=== PATIENT | female | born 1960 | race Hispanic/Latino ===

== ENCOUNTER 2018-03-26 15:21 | Emergency (ER) | payer BC ==
[2018-03-26 16:05] LABS: Absolute Lymphocytes (CBC) 0.6 K/uL (0.7-4.9); Absolute Monocytes 0.3 K/uL (0.1-1.3); Absolute Neutrophil 8.4 K/uL (1.8-8.0); Basophils % 0.4 % (0-1.3); Eosinophils % 0.5 % (0-4.4); Hematocrit 41.6 % (36.0-45.0); Lymphocytes % 6.3 % (15.3-44.8); MPV 8.4 fL (7.6-11.3); Monocytes % 3.6 % (3.3-12.3)
[2018-03-26] MEDS ORDERED: NA CHLORIDE 0.9% 1,000 ML ONE (16:11)
[2018-03-26] MEDS ORDERED: ONDANSETRON 4 MG/2 ML VIAL ONE (16:11)
[2018-03-26 16:20] LABS: Albumin 3.7 g/dL (3.4-5.0); Bilirubin Direct 0.3 mg/dL (0-0.2); Bilirubin Total 1.1 mg/dL (0.2-1.0); Potassium 3.7 mmol/L (3.5-5.1); Protein, Total 7.3 g/dL (6.4-8.2)
[2018-03-26 16:49] LABS: Urine Blood 1+ (NEG); Urine Glucose NEGATIVE (NEG); Urine Protein NEGATIVE (NEG); Urine Specific Gravity 1.015 (1.005-1.030); Urine pH 5.5 (5.0-7.0)
--- NOTE | 2018-03-26 17:03 | ER ---
Nurse's Notes [facility] Name: Lauren Hernandez Age: 57 yrs Sex: Female : 1960 Arrival Date: 03/26/2018 Time: 15:24 Bed 13 Private MD: Diagnosis: Nausea with vomiting, unspecified;Diarrhea, unspecified Presentation: 03/26 15:29 Presenting complaint: Patient states: N/V/D with nasal congestion since yesterday. aj Transition of care: patient was not received from another setting of care. Onset of symptoms was March 25, 2018. Risk Assessment: Do you want to hurt yourself or someone else? Patient reports no desire to harm self or others. Initial Sepsis Screen: Does the patient meet any 2 criteria? No. Patient's initial sepsis screen is negative. Does the patient have a suspected source of infection? No. Patient's initial sepsis screen is negative. Care prior to arrival: None. 15:29 Method Of Arrival: Ambulatory 15:29 Acuity: CARLOS 4 aj Triage Assessment: 15:31 General: Appears in no apparent distress. comfortable, obese, Behavior is calm, aj cooperative, appropriate for age. Pain: Denies pain. EENT: Reports nasal congestion nasal discharge. Neuro: Level of Consciousness is awake, alert, obeys commands, Oriented to person, place, time, situation, Appropriate for age. Respiratory: Airway is patent Respiratory effort is even, unlabored, Respiratory pattern is regular, symmetrical. GI: Abdomen is obese. Musculoskeletal: Range of motion: intact in all extremities. Historical: - Allergies: 15:31 No Known Allergies; aj - Home Meds: 15:31 Lisinopril Oral [Active]; Omeprazole Oral [Active]; Lovastatin Oral [Active]; aj - PMHx: 15:31 Hypertension; Hyperlipidemia; aj - Immunization history:: Adult Immunizations up to date. - Social history:: Smoking status: Patient/guardian denies using tobacco. - Ebola Screening: : Patient negative for fever greater than or equal to 101.5 degrees Fahrenheit, and additional compatible Ebola Virus Disease symptoms Patient denies exposure to infectious person Patient denies travel to an Ebola-affected area in the 21 days before illness onset No symptoms or risks identified at this time. Screenin:30 Abuse screen: Denies threats or abuse. Nutritional screening: No deficits noted. rb1 Tuberculosis screening: No symptoms or risk factors identified. Fall Risk None identified. Assessment: 15:30 General: Appears in no apparent distress. comfortable, obese, Behavior is calm, rb1 cooperative. Pain: Complains of pain in headache Pain currently is 7 out of 10 on a pain scale. Pain began 1 day ago. Neuro: Level of Consciousness is awake, alert, obeys commands, Oriented to person, place, time, situation. Cardiovascular: Capillary refill < 3 seconds is brisk in bilateral fingers. Respiratory: Airway is patent Respiratory effort is even, unlabored, Respiratory pattern is regular, symmetrical. GI: Reports diarrhea, nausea, vomiting, since yesterday. : No signs and/or symptoms were reported regarding the genitourinary system. Derm: Skin is dry, Skin is normal, Skin temperature is warm. 16:28 Reassessment: Patient appears in no apparent distress at this time. No changes from rb1 previously documented assessment. 17:17 Reassessment: Patient appears in no apparent distress at this time. Patient and/or rb1 family updated on plan of care and expected duration. Pain level reassessed. Patient is alert, oriented x 3, equal unlabored respirations, skin warm/dry/pink. Patient states symptoms have improved. Vital Signs: 15:31 BP 108 / 72; Pulse 96; Resp 20; Temp 99.2; Pulse Ox 98% on R/A; Weight 118.84 kg; aj Height 5 ft. 2 in. (157.48 cm); 16:30 BP 101 / 65; Pulse 83; Resp 20; Pulse Ox 99% on R/A; rb1 17:17 BP 108 / 72; Pulse 74; Resp 18; Pulse Ox 99% on R/A; rb1 15:31 Body Mass Index 47.92 (118.84 kg, 157.48 cm) aj ED Course: 15:24 Patient arrived in ED. rg4 15:29 [facility]erv[facility] Lug[facility]C [facility] kb 15:29 Sarmad Harris MD is Attending Physician. kb 15:30 Triage completed. aj 15:30 Patient has correct armband on for positive identification. Bed in low position. Call rb1 light in reach. Side rails up X 1. Pulse ox on. NIBP on. 15:31 Arm band placed on left wrist. Patient placed in an exam room. aj 15:41 Linsey Ohara, RN is Primary Nurse. rb1 15:55 Initial lab(s) drawn, by mi, sent to lab. Urine collected: clean catch specimen, clear. ms Inserted saline lock: 20 gauge in right antecubital area, using aseptic technique. Blood collected. 16:29 PO fluids given. Diet:. Diet: Patient given juice. ms 17:35 No provider procedures requiring assistance completed. IV discontinued, intact, rb1 bleeding controlled, No redness/swelling at site. Pressure dressing applied. Administered Medications: 16:05 Drug: NS 0.9% 1000 ml Route: IV; Rate: 1000 ml; Site: right antecubital; rb1 17:09 Follow up: IV Status: Completed infusion rb1 16:05 Drug: Zofran 4 mg Route: IVP; Site: right antecubital; rb1 16:20 Follow up: Response: No adverse reaction; Nausea is decreased rb1 Outcome: 17:02 Discharge ordered by MD. kb 17:35 Patient left the ED. rb1 17:35 Discharged to home ambulatory. rb1 17:35 Condition: stable 17:35 Discharge instructions given to patient, Instructed on discharge instructions, follow up and referral plans. medication usage, Demonstrated understanding of instructions, follow-up care, medications, Prescriptions given X 2. Signatures: Minerva Lugo, ELEVATOR OPERATOR-C ELEVATOR OPERATOR-CkMercedes Fuentes, RN RN Susu Leon ms Linsey Ohara, RN RN Kemi Canchola rg4
--- NOTE | 2018-03-26 17:03 | EDPHYS ---
Physician Documentation [facility] Name: Lauren Hernandez Age: 57 yrs Sex: Female : 1960 Arrival Date: 03/26/2018 Time: 15:24 Bed 13 Private MD: ED Physician Sarmad Harris HPI: 03/26 15:58 This 57 yrs old Female presents to ER via Ambulatory with complaints of kb Diarrhea, Vomiting, Headache. 15:58 The patient presents to the emergency department with nausea, vomiting, diarrhea. kb Onset: The symptoms/episode began/occurred yesterday. Possible causes: unknown. The symptoms are aggravated by nothing. The symptoms are alleviated by nothing. Associated signs and symptoms: Pertinent positives: diarrhea, fever, nausea, vomiting. Severity of symptoms: At their worst the symptoms were mild in the emergency department the symptoms are unchanged. The patient has not experienced similar symptoms in the past. The patient has not recently seen a physician. Historical: - Allergies: 15:31 No Known Allergies; aj - Home Meds: 15:31 Lisinopril Oral [Active]; Omeprazole Oral [Active]; Lovastatin Oral [Active]; aj - PMHx: 15:31 Hypertension; Hyperlipidemia; aj - Immunization history:: Adult Immunizations up to date. - Social history:: Smoking status: Patient/guardian denies using tobacco. - Ebola Screening: : Patient negative for fever greater than or equal to 101.5 degrees Fahrenheit, and additional compatible Ebola Virus Disease symptoms Patient denies exposure to infectious person Patient denies travel to an Ebola-affected area in the 21 days before illness onset No symptoms or risks identified at this time. ROS: 15:58 ENT: Negative for injury, pain, and discharge, Neck: Negative for injury, pain, and kb swelling, Cardiovascular: Negative for chest pain, palpitations, and edema, Respiratory: Negative for shortness of breath, cough, wheezing, and pleuritic chest pain, Back: Negative for injury and pain, : Negative for injury, bleeding, discharge, and swelling, MS/Extremity: Negative for injury and deformity, Skin: Negative for injury, rash, and discoloration, Neuro: Negative for headache, weakness, numbness, tingling, and seizure. 15:58 Constitutional: Positive for body aches, fatigue, fever, malaise, Negative for chills, poor PO intake, weight loss. 15:58 Abdomen/GI: Positive for nausea, vomiting, and diarrhea, Negative for abdominal pain, constipation, abdominal cramps, abdominal distension, anorexia. Exam: 15:58 Constitutional: This is a well developed, well nourished patient who is awake, alert, kb and in no acute distress. Head/Face: Normocephalic, atraumatic. ENT: Nares patent. No nasal discharge, no septal abnormalities noted. Tympanic membranes are normal and external auditory canals are clear. Oropharynx with no redness, swelling, or masses, exudates, or evidence of obstruction, uvula midline. Mucous membranes moist. Neck: Trachea midline, no thyromegaly or masses palpated, and no cervical lymphadenopathy. Supple, full range of motion without nuchal rigidity, or vertebral point tenderness. No Meningismus. Chest/axilla: Normal chest wall appearance and motion. Nontender with no deformity. No lesions are appreciated. Cardiovascular: Regular rate and rhythm with a normal S1 and S2. No gallops, murmurs, or rubs. Normal PMI, no JVD. No pulse deficits. Respiratory: Lungs have equal breath sounds bilaterally, clear to auscultation and percussion. No rales, rhonchi or wheezes noted. No increased work of breathing, no retractions or nasal flaring. Abdomen/GI: Soft, non-tender, with normal bowel sounds. No distension or tympany. No guarding or rebound. No evidence of tenderness throughout. Skin: Warm, dry with normal turgor. Normal color with no rashes, no lesions, and no evidence of cellulitis. MS/ Extremity: Pulses equal, no cyanosis. Neurovascular intact. Full, normal range of motion. Neuro: Awake and alert, GCS 15, oriented to person, place, time, and situation. Cranial nerves II-XII grossly intact. Motor strength 5/5 in all extremities. Sensory grossly intact. Cerebellar exam normal. Normal gait. Vital Signs: 15:31 BP 108 / 72; Pulse 96; Resp 20; Temp 99.2; Pulse Ox 98% on R/A; Weight 118.84 kg; aj Height 5 ft. 2 in. (157.48 cm); 16:30 BP 101 / 65; Pulse 83; Resp 20; Pulse Ox 99% on R/A; rb1 17:17 BP 108 / 72; Pulse 74; Resp 18; Pulse Ox 99% on R/A; rb1 15:31 Body Mass Index 47.92 (118.84 kg, 157.48 cm) aj MDM: 15:29 Patient medically screened. kb 15:59 Data reviewed: vital signs, nurses notes. Data interpreted: Pulse oximetry: on room air kb is 98 %. Interpretation: normal. 17:01 Counseling: I had a detailed discussion with the patient and/or guardian regarding: the kb historical points, exam findings, and any diagnostic results supporting the discharge/admit diagnosis, lab results, the need for outpatient follow up, a family practitioner, to return to the emergency department if symptoms worsen or persist or if there are any questions or concerns that arise at home. 03/26 15:40 Order name: Basic Metabolic Panel; Complete Time: 16:23 kb 03/26 15:40 Order name: CBC with Diff kb 03/26 15:40 Order name: Hepatic Function; Complete Time: 16:23 kb 03/26 15:40 Order name: Lipase; Complete Time: 16:23 kb 03/26 15:40 Order name: Flu; Complete Time: 16:23 kb 03/26 15:44 Order name: Urine Dipstick--Ancillary (enter results); Complete Time: 16:52 bd 03/26 15:40 Order name: IV Saline Lock; Complete Time: 15:55 kb 03/26 15:40 Order name: Labs collected and sent; Complete Time: 15:55 kb 03/26 15:40 Order name: Urine Dipstick-Ancillary (obtain specimen); Complete Time: 15:55 kb 03/26 16:23 Order name: PO challenge; Complete Time: 16:30 kb Administered Medications: 16:05 Drug: NS 0.9% 1000 ml Route: IV; Rate: 1000 ml; Site: right antecubital; rb1 17:09 Follow up: IV Status: Completed infusion rb1 16:05 Drug: Zofran 4 mg Route: IVP; Site: right antecubital; rb1 16:20 Follow up: Response: No adverse reaction; Nausea is decreased rb1 Disposition: 17:54 Co-signature as Attending Physician, Sarmad Harris MD. rn Disposition: 03/26/18 17:02 Discharged to Home. Impression: Nausea with vomiting, unspecified, Diarrhea, unspecified. - Condition is Stable. - Discharge Instructions: Food Choices to Help Relieve Diarrhea, Adult, Nausea and Vomiting, Adult, [id number], Diarrhea, Adult, [id number]. - Prescriptions for Bentyl 20 mg Oral Tablet - take 1 tablet by ORAL route every 6 hours As needed; 20 tablet. Zofran 4 mg Oral Tablet - take 1 tablet by ORAL route every 6 hours As needed; 20 tablet. - Medication Reconciliation Form, Thank You Letter, Antibiotic Education, Prescription Opioid Use, Work release form form. - Follow up: Emergency Department; When: As needed; Reason: Worsening of condition. Follow up: Private Physician; When: 2 - 3 days; Reason: Recheck today's complaints, Continuance of care, Re-evaluation by your physician. Signatures: Dispatcher [employer] EDMS Minerva Lugo, TIAGO GRANADOS-Mercedes Jones, RN Sarmad Tobin MD MD rn Barber, Rebecca, RN RN rb1 Corrections: (The following items were deleted from the chart) 17:35 17:02 03/26/2018 17:02 Discharged to Home. Impression: Nausea with vomiting, rb1 unspecified; Diarrhea, unspecified. Condition is Stable. Forms are Medication Reconciliation Form, Thank You Letter, Antibiotic Education, Prescription Opioid Use. Follow up: Emergency Department; When: As needed; Reason: Worsening of condition. Follow up: Private Physician; When: 2 - 3 days; Reason: Recheck today's complaints, Continuance of care, Re-evaluation by your physician. kb
[2018-03-26 18:02] LABS: Blood Morphology Comment NOT SEEN (NOT SEEN); Platelet Estimate ADEQ
== END 2018-03-26 17:35 | disposition home or self-care (01) ==
LOC: ER 15:21
DX: R19.7 Diarrhea, unspecified (principal); R11.2 Nausea with vomiting, unspecified; E78.5 Hyperlipidemia, unspecified; I10 Essential (primary) hypertension
CPT/HCPCS: 36415; 80048; 80076; 81003; 83690; 85025; 87804; 96361; 96374; 99284; J2405; J7030